=== PATIENT | male | born 1995 | race Caucasian/White ===

== ENCOUNTER 2017-03-07 01:23 | Emergency (ER) | payer OTHER ==
--- NOTE | ~2017-03-07 | ER ---
PATIENT'S NAME: VICTORIANO GRAY [facility] AGE: 21 Y [address] ROOM: [place] [id number] LOCATION: [facility] ADMIT DATE: 03/07/2017 ER/Outpatient Report DISCHARGE DATE: 03/07/2017 FAMILY PHYSICIAN: Physician, Unknown ATTENDING PHYSICIAN: Yarelis Reddy HISTORY OF PRESENT ILLNESS: This is a 21-year-old male who presents today with a chief complaint of chest pain and shortness of breath. The patient says that the shortness of breath just started tonight. 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 He has some cough as well. No history of asthma. He does not smoke. He has no pain on inspiration and no other complaints at this time. He denies any fever or chills. PAST MEDICAL HISTORY: Includes rhabdomyolysis and pleurisy. PAST SURGICAL HISTORY: [place] teeth removal. SOCIAL HISTORY: He drinks socially, but denies any drug use or smoking. ALLERGIES: ZITHROMAX. MEDICATIONS: None. REVIEW OF SYSTEMS: Reviewed by me and negative with the exception of those discussed in HPI. PHYSICAL EXAMINATION: VITAL SIGNS: He is 6 feet, 6 inches tall, he weighs 60.2 kilos, blood pressure 123/78, heart rate 83, respiratory rate 22, temp is 96.9, and sats are 100% on room air. GENERAL: The patient looks uncomfortable, although nontoxic. He keeps trying to clear his throat it sounds like. His airway is patent though. He is able to give a good history and give all of his history. His breathing is nonlabored. Circulation normal. NEUROLOGIC: Awake and alert. Alert and oriented x4. GCS is 15. HEENT: His throat is clear. He has no pharyngeal erythema or edema. No exudates. No trouble handling secretions. HEART: Regular rate and rhythm at this time. PATIENT'S NAME: VICTORIANO GRAY [facility] AGE: 21 Y [address] ROOM: [place], [place] [address] LOCATION: [facility] ADMIT DATE: 03/07/2017 ER/Outpatient Report DISCHARGE DATE: 03/07/2017 FAMILY PHYSICIAN: Physician, Unknown ATTENDING PHYSICIAN: Yarelis Reddy LUNGS: His lung sounds are clear. He has no labored breathing, tachypnea, or accessory muscle use. He has no wheezing either. No crackles. ABDOMEN: Soft, nontender, nondistended. No guarding or rebound. EXTREMITIES: He moves all extremities without any difficulty. SKIN: Warm, dry, and intact. EMERGENCY ROOM COURSE: The patient was given prednisone here and also a breathing treatment after which he said he felt a lot better. I discussed with him I think this is mostly reactive airway disease. We will give him albuterol inhaler and some prednisone for the next 2 days and he will follow up with his primary care doctor. He understands reasons to come back to the ER sooner. IMPRESSION: Reactive airway disease. MD ANTWAN HOSKINS/jose miguel /[id number] d: 03/07/17 [id number] t: 03/09/[id number], OUTPATIENT REPORT
[~2017-03-07 01:23] MED LIST: MOBIC15 MG PO; PEPCID20 MG PO; ULTRAM50 MG PO
== END 2017-03-07 02:15 | disposition disaster alternative care site (69) ==
LOC: GMED 01:23
DX: J45.909 Unspecified asthma, uncomplicated (principal); Z98.890 Other specified postprocedural states; Z88.1 Allergy status to other antibiotic agents
CPT/HCPCS: J7512